=== PATIENT | female | born 1970 | race Caucasian/White ===

== ENCOUNTER → 2021-09-06 | Day surgery (SDC) | payer OTHER ==
[~2021-09-06] VITALS: Ht 160 cm; Wt 74.8 kg
== END | disposition home or self-care (01) ==
LOC: FAS 10:40
DX: Z12.11 Encounter for screening for malignant neoplasm of colon (principal); K57.30 Diverticulosis of large intestine without perforation or abscess without bleeding; E78.5 Hyperlipidemia, unspecified; F17.200 Nicotine dependence, unspecified, uncomplicated; Z86.010 Personal history of colon polyps; Z80.0 Family history of malignant neoplasm of digestive organs; Z80.1 Family history of malignant neoplasm of trachea, bronchus and lung; Z79.899 Other long term (current) drug therapy; Z72.89 Other problems related to lifestyle
CPT/HCPCS: J1610; J2250; J2704; J7120